=== PATIENT | male | born 1995 | race Two or more races ===

== ENCOUNTER 2022-12-07 11:45 | Emergency (ER) | payer BC ==
[~2022-12-07] VITALS: Ht 165.1 cm; Wt 74.8 kg
[2022-12-07 11:54] VITALS: BP 130/75
--- NOTE | 2022-12-07 12:04 | NUR ---
PT WALKED INTO ER C/O BILATERAL LOWER LEG BUG BITES SEEN 4 DAYS AGO. PT AMBULATED TO ROOM WITH STEADY GAIT, BREATHING EVEN AND UNLABORED. PT DENIES CHILLS, SOB OR CP. AWAITING MD ORDERS.
[2022-12-07] MEDS ORDERED: DOXY100C2 PO (12:15)
[2022-12-07] MEDS ORDERED: PERM60CR6 TP (12:15)
--- NOTE | 2022-12-07 12:20 | NUR ---
Patient discharged to home in stable condition. Written and verbal after care instructions given. Patient verbalizes understanding of instruction.
== END 2022-12-07 12:21 | disposition home or self-care (01) ==
LOC: ER 11:45
DX: A93.8 Other specified arthropod-borne viral fevers (principal); Z79.899 Other long term (current) drug therapy